=== PATIENT | female | born 1940 | race Caucasian/White ===

== ENCOUNTER 2017-01-04 08:20 | Day surgery (SDC) | payer MEDICARE, OTHER ==
--- NOTE | 2017-01-04 08:18 | HP ---
DATE OF SURGERY: 01/04/2017 HISTORY OF PRESENT ILLNESS: The patient is a 76 year-old last colonoscopy 11 years ago. She denies any bloody stools, some occasional cramping pain, bowel movements and vasovagal response once or twice a year. PAST MEDICAL HISTORY: Hypertension, hypercholesterolemia, diabetes. MEDICATIONS: Lasix, ibuprofen, vitamins, aspirin, Simvastatin, Metformin, losartan hydrochlorothiazide. ALLERGIES: NKDA. FAMILY HISTORY: Negative. SOCIAL HISTORY: No smoking or alcohol abuse. REVIEW OF SYSTEMS: Twelve systems reviewed per admission assessment pertinent for as noted above. She denies any lumps or bumps in her neck. Incision is clean, dry and intact from past parathyroid surgery. PHYSICAL EXAMINATION: GENERAL: No acute distress. HEENT: Sclerae nonicteric. NECK: No JVD. CHEST: Equal excursion, nonlabored breathing. CVS: Regular rate and rhythm. ABDOMEN: Soft. No peritoneal signs. EXTREMITIES: She has had some edema. She is scheduled to get an echo according the patient. NEURO: Alert, moving extremities symmetrically. She did not have any signs or symptoms of hyperkalemia or hypocalcemia. IMPRESSION: Need for follow up screening colonoscopy. I feel she is a candidate. Risks and benefits explained in detail including but not limited to bleeding or infection, small risk of bowel injury or perforation possibly requiring open procedure, small risk of missed or nondiagnosis or incomplete exam possibly requiring barium enema, other studies or procedures, general risk of anesthesia or sedation, risk of bowel prep but not limited. She understands as well as postoperative nausea, cramping but not limited to. She understands and agrees to the planned procedure and will proceed with outpatient follow up colonoscopy.
[~2017-01-04 08:20] MED LIST: Lactated Ringers 1,000 ML IV SCH
[2017-01-04] MEDS ORDERED: Ketamine HCl 50 MG/ML IJ ONE (08:21)
[2017-01-04] MEDS ORDERED: DIPRIVAN 200 MG/20 ML IV ONE (08:21)
[2017-01-04] MEDS ORDERED: ROBINUL IV ONE (08:21)
[2017-01-04] MEDS ORDERED: Lactated Ringers 1,000 ML IV ONE (08:26)
[2017-01-04] MEDS ORDERED: Lactated Ringers 1,000 ML IV SCH (09:30)
--- NOTE | 2017-01-04 12:32 | OP ---
SURGERY DATE/TIME: 01/04/2017 1133 PREOPERATIVE DIAGNOSIS: Need for screening colonoscopy. POSTOPERATIVE DIAGNOSES: 1) Sessile small vague raised lesion versus early flat polyp cecum removed. 2) Diverticulosis. 3) Fair bowel prep. 4) Small internal and external hemorrhiods. PROCEDURES: 1) Colonoscopy to terminal ileum retrograde ileoscopy. 2) Hot biopsy with removal in piecemeal fashion raised area versus polypoid reaction to cecum. SURGEON: Dr. Sunny Nelson. [employer] TECHNICIAN: Marlene Lizarraga M.D. ANESTHESIA: MAC. ESTIMATED BLOOD LOSS: Minimal. INDICATIONS: As noted above. Risks and benefits explained in detail but not limited to and consent obtained. DESCRIPTION OF PROCEDURE AND FINDINGS: The patient is taken to the endoscopy room. MAC anesthesia introduced. After official time out and no disagreement with planned procedure, digital rectal exam did not reveal any rectal masses. She did have some small internal and external hemorrhoids. Video colonoscope inserted and passed up the tortuous sigmoid, descending and transverse colon. With the aid of external abdominal palpation and pressure the scope was able to be passed to the cecum. There was a sessile almost triangular-shaped in this polypoid reactive type raised lesion. It was removed in piecemeal fashion with hot biopsy forceps with very brief bursts of cautery. It appeared to have a viable base. Otherwise the scope was able to be passed up the terminal ileum. Retrograde ileoscopy was performed. Ileum was grossly unremarkable. The scope was gradually withdrawn. Prep overall was fair. There was a little bit of semisolid, liquidy stool in the right colon but overall fair bowel prep. The scope is slowly and carefully withdrawn. She did have some diverticulosis. She had some small internal and external hemorrhoids. There were no signs of any other large polyps, masses or obstructing lesions. The scope is withdrawn. The patient tolerated the procedure well. There were no immediate complications. Findings discussed with the daughter. I will see her back in the office. If this adenomatous-type polyp reaction of cecum may need to consider repeating her scope in a couple of years possibly. If it is hyperplastic may consider follow up in three years or so.
[2017-01-04 12:34] VITALS: O2SAT 99
[2017-01-04 12:52] VITALS: BP 113/59
[2017-01-04 13:07] VITALS: PULSE 61
== END 2017-01-04 13:15 | disposition home or self-care (01) ==
LOC: SDC 08:20
PROVIDERS: ATTEND Surgery
PROC: 0DBH8ZX Excision of Cecum, Via Natural or Artificial Opening Endoscopic, Diagnostic (ICD-10-PCS; principal; 2017-01-04)
DX: Z12.11 Encounter for screening for malignant neoplasm of colon (principal); D12.0 Benign neoplasm of cecum; K57.30 Diverticulosis of large intestine without perforation or abscess without bleeding; K64.4 Residual hemorrhoidal skin tags; K64.8 Other hemorrhoids
CPT/HCPCS: 00810; 36415; 88305; J2704